=== PATIENT | female | born 1970 | race Hispanic/Latino ===

== ENCOUNTER → 2017-06-19 | Outpatient (CLI) | payer BC ==
--- NOTE | 2017-06-26 16:32 | Diagnostic Imaging Report ---
#[id number] - MGSCRBIL #BILATERAL DIGITAL SCREENING MAMMOGRAM WITH CAD: 06/19/2017 CLINICAL: Routine screening. Comparison is made to exams dated: 07/13/2015 mammogram and 07/04/2014 mammogram - [facility]. Current study contains 4 films. The tissue of both breasts is extremely dense, which lowers the sensitivity of mammography. Current study was also evaluated with a Computer Aided Detection (CAD) system. There are benign calcifications in both breasts. There also are benign lymph nodes in both breasts. No significant masses, calcifications, or other findings are seen in either breast. There has been no significant interval change. IMPRESSION: BENIGN There is no mammographic evidence of malignancy. A 1 year screening mammogram is recommended. The patient will be notified by letter of the results. Leon triplett/rody:06/26/2017 10:30:06 Drawing Frame Tender: Marium MURDOCK(Alcides)(M), [facility] letter sent: Compared to Prior B9 Mammogram BI-RADS: 2 Benign
== END ==
LOC: MAMMO 07:52
PROVIDERS: ATTEND Obstetrics & Gynecology
DX: Z12.31 Encounter for screening mammogram for malignant neoplasm of breast (principal)
CPT/HCPCS: 77067

== ENCOUNTER → 2018-01-11 | Day surgery (SDC) | payer BC ==
[2018-01-08 12:58] LABS: BASOPHILS % 0.2 % (0.0-1.0); EOSINOPHILS # (AUTO) 0.2 (0.0-0.4); EOSINOPHILS % 2.7 % (0.0-6.0); HEMATOCRIT 40.3 % (34.2-44.1); HEMOGLOBIN 13.7 g/dL (12.0-16.0); LYMPHOCYTES # (AUTO) 1.7 (1.0-3.2); LYMPHOCYTES % 28.3 % (18.0-39.1); MEAN CORPUSCULAR HEMOGLOBIN 30.3 pg (28-32); MEAN CORPUSCULAR VOLUME 89.2 fL (81-99); MONOCYTES # (AUTO) 0.4 (0.2-0.8); MONOCYTES % 7.4 % (4.4-11.3); NEUTROPHILS # (AUTO) 3.6 (2.1-6.9); NEUTROPHILS % 61.2 % (38.7-80.0); PLATELET COUNT 199 x10e3/uL (140-360); RED BLOOD COUNT 4.52 x10e6/uL (3.6-5.1); RED CELL DISTRIBUTION WIDTH 12.4 % (11.7-14.4)
[2018-01-08 13:14] LABS: ALANINE AMINOTRANSFERASE 13 IU/L (0-55); ALBUMIN 3.8 g/dL (3.5-5.0); ALBUMIN/GLOBULIN RATIO 1.2 (0.8-2.0); ALKALINE PHOSPHATASE 88 IU/L (40-150); ANION GAP 13.2 mmol/L (8-16); BLOOD UREA NITROGEN 14 mg/dL (7-26); BUN/CREATININE RATIO 16 (6-25); CALCIUM 9.6 mg/dL (8.4-10.2); CARBON DIOXIDE 25 mmol/L (22-29); CHLORIDE 106 mmol/L (98-107); CHOL/HDL RATIO 4.7 (3.0-3.6); CHOLESTEROL 229 MD/DL (0-199); CREATININE, SERUM 0.86 mg/dL (0.57-1.11); EST GLOMERULAR FILTRATION RATE > 60 ML/MIN (60-); GLUCOSE 99 mg/dL (74-118); HDL CHOLESTEROL 49 MG/DL (40-60); LDL CHOLESTEROL 160 MG/DL (60-130); POTASSIUM 4.2 mmol/L (3.5-5.1); SODIUM 140 mmol/L (136-145); TRIGLYCERIDES 102 MG/DL (0-149)
[~2018-01-11] VITALS: Ht 154.9 cm; Wt 66.7 kg
[2018-01-11] VITALS (7 sets, daily range): BP systolic 111–125; BP diastolic 75–91
[~2018-01-11] MED LIST: CARDIZEM120 MG PO; ESSENTIAL OILS PO; FENTANYL CITRATE/PF 100MCG/2 ML INJ ONE; FUROSEMIDE40 MG PO; HEPARIN SOD (PORCINE) 1000 UNIT/ML 30ML ONE; HEPARIN SOD/SOD CHLORIDE 2,000 ML ONE; IOPAMIDOL 370 MG/ML 200 ML INFUS..BTL INJ ONE; LIDOCAINE HCL 1% LOCAL INJ 20 ML VIAL ONE; MIDAZOLAM HCL 2 MG/2 ML VIAL ONE; NITROGLYCERIN/D5W 200 MCG/ML 250 ML ONE; OSPHENA PO; SULFURZYME PO; VERAPAMIL HCL 2.5 MG/ML 2 ML VIAL ONE; VITAMIN D31000 UNIT PO; [UNRECOGNIZED DRUG - OTHER] PO; [UNRECOGNIZED DRUG - OTHER] PO
--- OUTSIDE RECORDS SUMMARY | 2018-01-11 10:30 | XMS REPORT | Continuity of Care Document ---
Author Author [facility] Interface Address Unknown Phone Unavailable Problems Problem Status Onset Date Classification Date Reported Comments Source Galactorrhea not associated with childbirth<sup>1</sup> Active 06/29/2014 Problem 07/03/2017 Data migrated from [employer] system on 09/20/14. [facility] Gynecologic examination<sup>2</sup> Active 06/29/2014 Problem 07/03/2017 Data migrated from [employer] system on 09/20/14. [facility] Screening mammography<sup>6</sup> Active 06/29/2014 Problem 07/03/2017 Data migrated from [employer] system on 09/20/14. [facility] Menopausal syndrome<sup>3</sup> Active 04/21/2013 Problem 07/03/2017 Data migrated from [employer] system on 08/12/14. Medical [facility] Preoperative procedures<sup>4, 5</sup> Resolved 02/16/2013 Problem 07/03/2017 Data migrated from [employer] system on 09/29/14. [facility] 626.2 Active 01/27/2013 [facility] Chronic back pain Active Problem 07/03/[address] [facility] Constipation Active Problem 07/03/2017 [facility] Excessive and frequent menstruation Active Problem 07/03/[address] [facility] Heavy episode of vaginal bleeding Active Problem 07/03/2017 [facility] Hypertension Resolved Problem 07/03/2017 [facility] Simple obesity Active Problem 07/03/2017 [facility] Heart murmur Active Problem 06/29/[address] [facility] EXCESSIVE MENSTRUATION Active [facility] Medications Medication Details Route Status Patient Instructions Ordering Provider Order Date Source Ergocalciferol 25432 UNT Oral Capsule 50,000 IntlUnit=1 cap, PO, qWeek, # 12 cap, 0 Refill(s), Pharmacy: [place] [id number] Active 06/28/2017 [facility] Ospemifene 60 MG Oral Tablet [Osphena] 60 mg=1 tab, PO, Daily, # 30 tab, 6 Refill(s), Pharmacy: [place] [id number] Active 06/26/2017 [facility] ibuprofen 400 mg oral tablet 800 mg=2 tab, PO, Q6H, Pain, # 36 tab, 2 Refill(s) Active [place] 03/01/2013 [facility] acetaminophen-hydrocodone 325 mg-5 mg oral tablet 2 tab, PO, Q4H, Pain Score 4-6, # 30 tab, 0 Refill(s) Active [place] 03/01/2013 [facility] Reglan 10 mg, 2 mL, Route: IVP, Drug form: INJ, Q6H, Dosing Weight 60.455, kg, Start date: 02/28/13 18:00:00, Duration: 30 day, Stop date: 03/30/13 12:00:00(Same as: Reglan) No Longer Active [place] 03/01/2013 [facility] Phenergan 12.5 mg, Route: IVPB, ONCE, Dosing Weight 65.909, kg, Start date: 02/28/13 14:50:00, Stop date: 02/28/13 14:50:00 Inactive [place] 02/28/2013 [facility] ondansetron 4 mg, 2 mL, Route: IVP, Drug form: INJ, ONCE, Dosing Weight 65.909, kg, PRN Nausea & Vomiting, Start date: 02/28/13 14:20:00(Same as: Zofran) Inactive [place] 02/28/2013 [facility] Demerol HCl 50 mg, 1 mL, Route: IM, Drug form: INJ, ONCE, Dosing Weight 65.909, kg, PRN Pain Score 7-10, Start date: 02/28/13 14:20:00(Same as: Demerol) "Use Precaution in Elderly, Seizure disorders, and Renal impairment" Inactive [place] 02/28/2013 [facility] Phenergan 25 mg, 1 mL, Route: IM, Drug form: INJ, ONCE, Dosing Weight 65.909, kg, PRN as needed for nausea/vomiting, Start date: 02/28/13 14:20:00Do not give IV push. (Same as: Phenergan) Inactive [place] 02/28/2013 [facility] ketorolac 30 mg, 1 mL, Route: IVP, Drug form: INJ, ONCE, Dosing Weight 65.909, kg, Start date: 02/28/13 14:20:00, Duration: 1 doses or times, Stop date: 02/28/13 14:20:00(Same as:Toradol) IV bolus must be given >15 seconds. Give IM administration slowly and deeply into the muscle. Not for use > 4 days Inactive [place] 02/28/2013 [facility] hydromorphone 0.5 mg, 0.5 mL, Route: IVP, Drug form: INJ, Q5Min, Dosing Weight 65.909, kg, PRN Pain Score 7-10, Start date: 02/28/13 14:20:00, Duration: 4 doses or times, Stop date: Limited # of timesSame as: Dila udid Inactive [place] 02/28/2013 [facility] morphine Sulfate 2 mg, 1 mL, Route: IVP, Drug form: INJ, Q5Min, Dosing Weight 65.909, kg, PRN Pain Score 4-6, Start date: 02/28/13 14:20:00, Duration: 5 doses or times, Stop date: Limited # of times(Same as:MORPhine Sulfate) Inactive [place] 02/28/2013 [facility] flumazenil 0.2 mg, 2 mL, Route: IVP, Drug form: INJ, PRN, Dosing Weight 65.909, kg, PRN Benzodiazepine Reversal, Initial dose, Start date: 02/28/13 14:20:00, Duration: 12 hr, Stop date: 03/01/13 2:19:00(Same as: Romazicon) Inactive [place] 02/28/2013 [facility] labetalol 10 mg, 2 mL, Route: IVP, Drug form: INJ, Q5Min, Dosing Weight 65.909, kg, PRN Elevated BP, Start date: 02/28/13 14:20:00, Duration: 5 doses or times, Stop date: Limited # of times(Same as: Normodyne, Tr andate) Push over 2 minutes Give bolus over 2-3 minutes. Inactive [place] 02/28/2013 [facility] naloxone 0.04 mg, 0.1 mL, Route: IVP, Drug form: INJ, Q2MIN, Dosing Weight 65.909, kg, PRN Narcotic Reversal, Start date: 02/28/13 14:20:00, Duration: 8 doses or times, Stop date: Limited # of timesSame as Narcan Inactive [place] 02/28/2013 [facility] ephedrine 5 mg, 1 mL, Route: IVP, Drug form: INJ, Q5Min, Dosing Weight 65.909, kg, PRN Low Blood Pressure, Start date: 02/28/13 14:20:00, Duration: 12 hr, Stop date: 03/01/13 2:15:00 Inactive [place] 02/28/2013 [facility] Lactated Ringers Injection IV 1,000 mL 1,000 mL, Rate: 125 ml/hr, Infuse over: 8 hr, Route: IV, Dosing Weight 65.909 kg, Total Volume: 1,000, Start date: 02/28/13 14:20:00, Duration: 12 hr, Stop date: 03/01/13 2:19:00 Inactive [place] 02/28/2013 [facility] ibuprofen 800 mg, 2 tab, Route: PO, Drug form: TAB, TID, Dosing Weight 60.455, kg, PRN Pain, Start date: 02/28/13 14:04:00, Duration: 30 day, Stop date: 03/30/13 14:03:00(Same as: Motrin) "Do Not Crush" Give with food. No Longer Active [facility] 02/28/2013 [facility] morphine Sulfate 6 mg, 0.6 mL, Route: IVP, Drug form: SOLN, Q3H, Dosing Weight 65.909, kg, PRN Pain Score 7-10, Start date: 02/28/13 14:04:00, Duration: 30 day, Stop date: 03/30/13 14:03:00(Same as: MORPhine Sulfate) No Longer Active [place] 02/28/2013 [facility] ketorolac 30 mg, 1 mL, Route: IVP, Drug form: INJ, Q6H, Dosing Weight 60.455, kg, PRN Pain Score 6-10, Start date: 02/28/13 14:04:00, Duration: 1 day, Stop date: 03/01/13 14:03:00(Same as:Toradol) IV bolus must be given >15 seconds. Give IM administration slowly and deeply into the muscle. Not for use > 4 days No Longer Active [facility] 02/28/2013 [facility] meperidine 25 mg, 1 mL, Route: IM, Drug form: INJ, Q3H, Dosing Weight 60.455, kg, PRN Pain Score 7-10, DO NOT BREASTFEED, Start date: 02/28/13 14:04:00, Duration: 48 hr, Stop date: 03/02/13 14:03:00(Same as: Demerol) "Use Precaution in Elderly, Seizure disorders, and Renal impairment" No Longer Active [facility] 02/28/2013 [facility] zolpidem 5 mg, 1 tab, Route: PO, Drug form: TAB, Bedtime, Dosing Weight 65.909, kg, PRN Insomnia, Start date: 02/28/13 14:04:00, Duration: 30 day, Stop date: 03/30/13 14:03:00(Same As: Ambien) No Longer Active [facility] 02/28/2013 [facility] diphenhydrAMINE 25 mg, 1 tab, Route: PO, Drug form: TAB, Bedtime, Dosing Weight 65.909, kg, PRN Insomnia, Start date: 02/28/13 14:04:00, Duration: 30 day, Stop date: 03/30/13 14:03:00 No Longer Active [facility] 02/28/2013 [facility] ondansetron 4 mg, 2 mL, Route: IVP, Drug form: INJ, Q6H, Dosing Weight 65.909, kg, PRN Nausea & Vomiting, Start date: 02/28/13 14:04:00, Duration: 30 day, Stop date: 03/30/13 14:03:00(Same as: Zofran) No Longer Active [facility] 02/28/2013 [facility] acetaminophen-hydrocodone 325 mg-5 mg oral tablet 2 tab, Route: PO, Drug Form: TAB, Dosing Weight 60.455, kg, Q4H, PRN Pain Score 4-6, Start date: 02/28/13 14:04:00, Duration: 30 day, Stop date: 03/30/13 14:03:00(Same as: [place] 325/5) Do not exceed 4gm/day of acetaminophen. No Longer Active [facility] 02/28/2013 [facility] Lactated Ringers Injection IV 1,000 mL 1,000 mL, Rate: 125 ml/hr, Infuse over: 8 hr, Route: IV, Dosing Weight 65.909 kg, Total Volume: 1,000, Start date: 02/28/13 14:04:00, Duration: 30 day, Stop date: 03/30/13 14:03:00 No Longer Active [facility] 02/28/2013 [facility] Lovenox 40 mg, 0.4 mL, Route: SUB-Q, Drug form: INJ, ONCALL, Start date: 02/28/13 8:00:00, Duration: 12 hr, Stop date: 02/28/13 19:59:00(Same as: Lovenox) Inactive [facility] 02/28/2013 [facility] lidocaine 0.1 mL, Route: IV, Drug form: INJ, ONCALL, Start date: 02/28/13 6:00:00, Duration: 12 hr, Stop date: 02/28/13 17:59:00Preservative free. (Same as: Xylocaine MPF) Inactive [place] 02/28/2013 [facility] Lactated Ringers Injection IV 1,000 mL 1,000 mL, Rate: 100 ml/hr, Infuse over: 10 hr, Route: IV, Dosing Weight 65.909 kg, Total Volume: 1,000, Start date: 02/28/13 6:00:00, Duration: 12 hr, Stop date: 02/28/13 17:59:00 Inactive [place] 02/28/2013 [facility] Fat Fighter Fat Fighter, 2 tab, PO, Daily, Refill(s) 0 Active 02/17/2013 [facility] Vitamin D3 2000 intl units oral capsule 2,000 IntlUnit=1 cap, PO, Daily, 0 Refill(s) Active 02/17/2013 [facility] Probiotic Formula 1 cap, PO, Daily, 0 Refill(s) Active 02/17/2013 [facility] cefazolin + Sodium Chloride 0.9% IV 100 mL 1 gm, Route: IVPB, ONCALL, Dosing Weight 60.455, kg, Start date: 02/16/13 14:00:00, Duration: 30 day, Stop date: 03/18/13 13:59:00(Same As: Ancef Kefzol) No Longer Active [facility] 02/16/2013 [facility] enoxaparin 40 mg, 0.4 mL, Route: SUB-Q, Drug form: INJ, ONCE, Dosing Weight 60.455, kg, Start date: 02/16/13 13:05:00, Stop date: 02/16/13 13:05:00 No Longer Active [place] 02/16/2013 [facility] Allergies, Adverse Reactions, Alerts Substance Category Reaction Severity Reaction type Status Date Reported Comments Source Immunizations Immunization Date Given Site Status Last Updated Comments Source Results Order Name Results Value Reference Range Date Interpretation Comments Source HEMATOLOGY Hgb 11.4 g/dL 12.0 - 16.0 03/01/2013 LOW [facility] HEMATOLOGY Hct 33.5 % 36.0 - 48.0 03/01/2013 LOW [facility] HEMATOLOGY Hct 37.0 % 36.0 - 48.0 02/28/2013 Normal [facility] HEMATOLOGY Hgb 12.6 g/dL 12.0 - 16.0 02/28/2013 Normal [facility] BLOOD BANK RESULTS ABO/Rh A POS 02/28/2013 [facility] BLOOD BANK RESULTS Antibody Scrn Negative (02/28/2013 09:43:00) 02/28/2013 Normal [facility] CHEMISTRY U Preg Negative (02/28/2013 09:30:00) Negative 02/28/2013 Normal [facility] HEMATOLOGY Segs 59.3 % 45.0 - 75.0 [facility] Monocytes 10.6 % 2.0 - 12.0 02/17[facility] HEMATOLOGY Eosinophils 2.6 % 0.0 - 4.0 02/17/[facility] HEMATOLOGY Lymphocytes 27.0 % 20.0 - 40.0 02/17/[facility] HEMATOLOGY Basophils 0.5 % 0.0 - 1.0 02/17/[facility] HEMATOLOGY Lymphocytes # 1.7 K/CMM 1.0 - 5.5 02/17/2013 [facility] HEMATOLOGY Segs-Bands # 3.6 K/CMM 1.5 - 8.1 02/17/2013 [facility] HEMATOLOGY Monocytes # 0.6 K/CMM 0.0 - 0.8 02/17/2013 [facility] HEMATOLOGY Eosinophils # 0.2 K/CMM 0.0 - 0.5 02/17/[facility] HEMATOLOGY Basophils # 0.0 K/CMM 0.0 - 0.2 02/17/2013 Normal [facility] HEMATOLOGY Hgb 13.6 g/dL 12.0 - 16.0 02/17/2013 Normal [facility] HEMATOLOGY WBC X 10x3 6.1 K/CMM 3.7 - 10.4 02/17/2013 Normal [facility] HEMATOLOGY RBC X 10x6 4.41 M/CMM 4.20 - 5.40 02/17/2013 Normal [facility] HEMATOLOGY Hct 39.8 % 36.0 - 48.0 02/17/2013 Normal [facility] HEMATOLOGY MCV 90.4 fL 81.0 - 99.0 02/17/2013 Normal [facility] HEMATOLOGY MCH 30.9 pg 27.0 - 31.0 02/17/2013 Normal [facility] HEMATOLOGY MCHC 34.2 g/dL 32.0 - 36.0 02/17/2013 Normal [facility] HEMATOLOGY RDW 12.4 % 11.5 - 14.5 02/17/2013 Normal [facility] HEMATOLOGY Platelet 189 K/CMM 133 - 450 02/17/2013 Normal [facility] HEMATOLOGY MPV 9.9 fL 7.4 - 10.4 02/17/2013 Normal [facility] URINALYSIS UA Color Yellow *NA* (02/17/2013 09:00:00) Yellow 02/17/2013 [facility] URINALYSIS UA Turbidity Clear (02/17/2013 09:00:00) Clear 02/17/2013 Normal [facility] URINALYSIS UA Nitrite Negative (02/17/2013 09:00:00) Negative 02/17/2013 Normal [facility] URINALYSIS UA Blood Moderate *ABN* (02/17/2013 09:00:00) Negative 02/17/2013 ABN [facility] URINALYSIS UA Urobilinogen 0.2 EU/dL 0.1 - 1.0 02/17/2013 Normal [facility] URINALYSIS UA Bili Negative *NA* (02/17/2013 09:00:00) Negative 02/17/2013 [facility] URINALYSIS UA Ketones Negative *NA* (02/17/2013 09:00:00) Negative 02/17/2013 [facility] URINALYSIS UA Glucose Negative (02/17/2013 09:00:00) Negative 02/17/2013 Normal [facility] URINALYSIS UA pH 6.0 5.0 - 8.0 02/17/2013 Normal [facility] URINALYSIS UA Protein Negative (02/17/2013 09:00:00) Negative 02/17/2013 Normal [facility] URINALYSIS UA Spec Grav <=1.005
*NA*
(02/17/2013 09:00:00) <sup> </sup> <=1.030 02/17/2013 [facility] URINALYSIS UA Leuk Est Negative (02/17/2013 09:00:00) Negative 02/17/2013 Normal [facility] URINALYSIS UA Sq Epi Rare /LPF Few 02/17/2013 Normal [facility] URINALYSIS UA WBC None Seen (02/17/2013 09:00:00) None Seen 02/17/2013 Normal [facility] URINALYSIS Micro? Performed (02/17/2013 09:00:00) 02/17/2013 Normal [facility] URINALYSIS UA Bacteria Occasional /HPF None Seen 02/17/2013 Normal [facility] URINALYSIS UA RBC None Seen (02/17/2013 09:00:00) 0 - 2 02/17/2013 Normal [facility] Vital Signs Vital Sign Value Date Comments Source BMI Calculated 31.14 06/26/2017 [facility] Weight 74.744 06/26/2017 [facility] Height 154.94 cm 06/26/2017 [facility] Temperature Oral (F) 98.5 F 06/26/2017 [facility] Systolic (mm Hg) 139 06/26/2017 [facility] Diastolic (mm Hg) 97 06/26/2017 [facility] Heart Rate 74 06/26/2017 [facility] Heart Rate 96 03/01/2013 [facility] Temperature Oral (F) 99.0 F 03/01/2013 [facility] Respitory Rate 20 03/01/2013 [facility] Systolic (mm Hg) 116 03/01/2013 [facility] Diastolic (mm Hg) 76 03/01/2013 [facility] Temperature Oral (F) 98.3 F 03/01/2013 [facility] Respitory Rate 18 03/01/2013 [facility] Heart Rate 98 03/01/2013 [facility] Diastolic (mm Hg) 69 03/01/2013 [facility] Systolic (mm Hg) 106 03/01/2013 [facility] Systolic (mm Hg) 117 02/28/2013 [facility] Diastolic (mm Hg) 74 02/28/2013 [facility] Heart Rate 84 02/28/2013 [facility] Respitory Rate 16 02/28/2013 [facility] Weight 65.909 02/17/2013 [facility] Height 154.94 cm 02/17/2013 [facility] Encounters Location Location Details Encounter Type Encounter Number Reason For Visit Attending Provider ADM Date DC Date Status Source Not Sent Inpatient [id number] 626.2 FRANCISCO BOWEN 02/28/2013 03/01/2013 Active [facility] Outpatient [id number] FRANCISCO BOWEN 07/06/2015 Active [facility] Outpatient [id number] FRANCISCO BOWEN 01/19/2017 Active [facility] Outpatient [id number] FRANCISCO BOWEN 06/26/2017 [facility] 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
--- OUTSIDE RECORDS SUMMARY | 2018-01-11 10:31 | XMS REPORT ---
Author [facility] Address Unknown Phone Unavailable Care Team Providers Care Assistant Food Service Manager Name Role Phone FRANCISCO ZAMORA Unavailable Unavailable Problems This patient has no known problems. Allergies, Adverse Reactions, Alerts This patient has no known allergies or adverse reactions. Medications This patient has no known medications. Results Test Description Test Time Test Comments Text Results Atomic Results Result Comments MAMMOGRAPHY DIGITAL SCR BILAT [place] [address] Patient Name: DIOR JONES MR #: [id number] : 1970 Age/Sex: 46/F Req #: [id number] [facility] Physician: Ordered by: FRANCISCO ZAMORA MD Report #: [id number] Location: MAMMO Room/Bed: Procedure: [id number] MG/MAMMOGRAPHY DIGITAL SCR BILAT Exam Date: 06/19/17 Exam Time: 0833 REPORT STATUS: Signed #[id number] - MGSCRBIL #BILATERAL DIGITAL SCREENING MAMMOGRAM WITH CAD: 06/19/2017 CLINICAL: Routine screening. Comparison is made to exams dated: 07/13/2015 mammogram and 07/04/2014 mammogram - [facility]. Current study contains 4 films. The tissue of both breasts is extremely dense, which lowers the sensitivity of mammography. Current study was also evaluated with a Computer Aided Detection (CAD) system. There are benign calcifications in both breasts. There also are benign lymph nodes in both breasts. No significant masses, calcifications, or other findings are seen in either breast. There has been no significant interval change. IMPRESSION: BENIGN There is no mammographic evidence of malignancy. A 1 year screening mammogram is recommended. The patient will be notified by letter of the results. Venu triplett/luis enrique:06/26/2017 10:30:06 Urban Anthropologist: Marium MURDOCK(Alcides)(M), [facility] letter sent: Compared to Prior B9 Mammogram BI-RADS: 2 Benign Dictated By: VENU MINER DO 1030 Transcribed By: LUIS ENRIQUE on 06/26/17 1030 COPY TO: FRANCISCO ZAMORA MD
--- OUTSIDE RECORDS SUMMARY | 2018-01-11 10:31 | XMS REPORT | Summary of Care ---
Author Author [facility] mortuary beautician [place] Organization [facility] mortuary beautician [place] Address Unknown Phone Unavailable Encounter DANIEL Lu(FIN) [id number] Date(s): 06/26/17 - 06/26/17 [facility] mortuary beautician [place] [address] [place], [place] [address] [phone] Discharge Disposition: Home or Self Care Attending Physician: Negrito Bowen MD Vital Signs Most recent to 1 oldest [Reference Range]: Height 154.94 cm (06/26/17 9:10 AM) Temperature Oral 98.5 DegF [96.4-99.1 DegF] (06/26/17 9:10 AM) Blood Pressure 139/97 mmHg [90-140/60-90 mmHg] (06/26/17 9:10 AM) Peripheral Pulse 74 bpm Rate [60-100 bpm] (06/26/17 9:10 AM) Weight 74.744 kg (06/26/17 9:10 AM) Body Mass Index 31.14 m2 (06/26/17 9:10 AM) Problem List Condition Effective Dates Status Health Status Informant Chronic back Active pain(Confirmed) Constipation(Confirm Active ed) Excessive and Active frequent menstruation(Confirm ed) Galactorrhea not 06/29/14 Active associated with childbirth1 Gynecologic 06/29/14 Active examination2 Heart Active murmur(Confirmed) Heavy episode of Active vaginal bleeding(Confirmed) Hypertension(Confirm Resolved ed) Menopausal syndrome3 04/21/13 Active Preoperative 02/16/13 Resolved procedures4, 5 Screening 06/29/14 Active mammography6 Simple Active obesity(Confirmed) 1Data migrated from [employer] on 09/20/14. 2Data migrated from [employer] on 09/20/14. 3Data migrated from [employer] on 08/12/14. 4Data migrated from [employer] on 09/30/14. 5Data migrated from [employer] on 09/29/14. 6Data migrated from [employer] on 09/20/14. Allergies, Adverse Reactions, Alerts Substance Reaction Severity Status NKDA Active Medications ergocalciferol 50,000 intl units oral capsule 50,000 IntlUnit=1 cap, PO, qWeek, # 12 cap, 0 Refill(s), Pharmacy: [facility] [place] [id number] Start Date: 06/27/17 Stop Date: 09/19/17 Status: Ordered Osphena 60 mg oral tablet 60 mg=1 tab, PO, Daily, # 30 tab, 6 Refill(s), Pharmacy: [facility] [place] [id number] Start Date: 06/26/17 Status: Ordered Results No data available for this section Immunizations No data available for this section Procedures Procedure Date Related Diagnosis Body Site Status H/O: hysterectomy 02/2013 Completed Ablation1 Completed Bunionectomy Completed section Completed 1vaginal with novasure Social History Social History Type Response Sexual Sexually active: Yes. Last Pap Smear 06/2015 Normal. Alcohol Current, Type Liquor. Frequency: 1-2 times per month. Smoking Status Never smoker; Exposure to Tobacco Smoke None; Cigarette Smoking Last 365 Days No; Reg Smoking Cessation Counseling No entered on: 06/26/17 Assessment and Plan No data available for this section
--- OUTSIDE RECORDS SUMMARY | 2018-01-11 10:31 | XMS REPORT | Summary of Care ---
Author Author [facility] adult literacy instructor [place] Organization [facility] adult literacy instructor [place] Address Unknown Phone Unavailable Encounter DANIEL Lu(FIN) [id number] Date(s): 06/29/17 - 06/30/17 [facility] adult literacy instructor [place] [address] [place] [place], [place] [address] [phone] Vital Signs No data available for this section Problem List Condition Effective Dates Status Health Status Informant Chronic back Active pain(Confirmed) Constipation(Confirm Active ed) Excessive and Active frequent menstruation(Confirm ed) Galactorrhea not 06/29/14 Active associated with childbirth1 Gynecologic 06/29/14 Active examination2 Heavy episode of Active vaginal bleeding(Confirmed) Hypertension(Confirm [...] Substance Reaction Severity Status NKDA Active Medications No data available for this section Results No data available for this section [...]
--- OUTSIDE RECORDS SUMMARY | 2018-01-11 10:31 | XMS REPORT | CCD ---
Author Author Auto Generated Organization [facility] Address Unknown Phone Unavailable Care Team Providers Care Sap Pi Developer Name Role Phone Negrito Bowen RP Allergies, Adverse Reactions, Alerts Substance Reaction Status NKDA Active Problem List Condition Effective Dates Status Chronic back pain Active Constipation Active Excessive and frequent menstruation Active Heart murmur Active Heavy episode of vaginal bleeding Active Medications Medication Instructions Start Date End Date Status lidocaine 0.1 mL, Route: IV, Drug form: INJ, 02/28/2013 02/28/2013 Completed ONCALL, Start date: 02/28/13 6:00:00, Duration: 12 hr, Stop date: 02/28/13 17:59:00Preservative free. (Same as: Xylocaine MPF) Lactated Ringers 1,000 mL, Rate: 100 ml/hr, Infuse 02/28/2013 02/28/2013 Completed Injection IV 1,000 over: 10 hr, Route: IV, Dosing mL Weight 65.909 kg, Total Volume: 1,000, Start date: 02/28/13 6:00:00, Duration: 12 hr, Stop date: 02/28/13 17:59:00 ondansetron 4 mg, 2 mL, Route: IVP, Drug form: 02/28/2013 02/28/2013 Completed INJ, ONCE, Dosing Weight 65.909, kg, PRN Nausea & Vomiting, Start date: 02/28/13 14:20:00(Same as: Zofran) Demerol HCl 50 mg, 1 mL, Route: IM, Drug form: 02/28/2013 02/28/2013 Discontinued INJ, ONCE, Dosing Weight 65.909, kg, PRN Pain Score 7-10, Start date: 02/28/13 14:20:00(Same as: Demerol) "Use Precaution in Elderly, Seizure disorders, and Renal impairment" Demerol HCl 25 mg, 1 mL, Route: IVP, Drug form: 02/28/2013 02/28/2013 Discontinued INJ, Q10Min, Dosing Weight 65.909, kg, PRN Pain Score 4-6, Start date: 02/28/13 14:20:00, Duration: 4 hr, Stop date: 02/28/13 18:10:00(Same as: Demerol) "Use Precaution in Elderly, Seizure disorders, and Renal impairment" Phenergan 25 mg, 1 mL, Route: IM, Drug form: 02/28/2013 02/28/2013 Discontinued INJ, ONCE, Dosing Weight 65.909, kg, PRN as needed for nausea/vomiting, Start date: 02/28/13 14:20:00Do not give IV push. (Same as: Phenergan) ketorolac 30 mg, 1 mL, Route: IVP, Drug form: 02/28/2013 02/28/2013 Discontinued INJ, ONCE, Dosing Weight 65.909, kg, Start date: 02/28/13 14:20:00, Duration: 1 doses or times, Stop date: 02/28/13 14:20:00(Same as:Toradol) IV bolus must be given >15 seconds. Give IM administration slowly and deeply into the muscle. Not for use > 4 days hydromorphone 0.5 mg, 0.5 mL, Route: IVP, Drug 02/28/2013 02/28/2013 Discontinued form: INJ, Q5Min, Dosing Weight 65.909, kg, PRN Pain Score 7-10, Start date: 02/28/13 14:20:00, Duration: 4 doses or times, Stop date: Limited # of timesSame as: Dilaudid morphine Sulfate 2 mg, 1 mL, Route: IVP, Drug form: 02/28/2013 02/28/2013 Discontinued INJ, Q5Min, Dosing Weight 65.909, kg, PRN Pain Score 4-6, Start date: 02/28/13 14:20:00, Duration: 5 doses or times, Stop date: Limited # of times(Same as:MORPhine Sulfate) flumazenil 0.2 mg, 2 mL, Route: IVP, Drug 02/28/2013 02/28/2013 Discontinued form: INJ, PRN, Dosing Weight 65.909, kg, PRN Benzodiazepine Reversal, Initial dose, Start date: 02/28/13 14:20:00, Duration: 12 hr, Stop date: 03/01/13 2:19:00(Same as: Romazicon) labetalol 10 mg, 2 mL, Route: IVP, Drug form: 02/28/2013 02/28/2013 Discontinued INJ, Q5Min, Dosing Weight 65.909, kg, PRN Elevated BP, Start date: 02/28/13 14:20:00, Duration: 5 doses or times, Stop date: Limited # of times(Same as: Normodyne, Trandate)Push over 2 minutes Give bolus over 2-3 minutes. naloxone 0.04 mg, 0.1 mL, Route: IVP, Drug 02/28/2013 02/28/2013 Discontinued form: INJ, Q2MIN, Dosing Weight 65.909, kg, PRN Narcotic Reversal, Start date: 02/28/13 14:20:00, Duration: 8 doses or times, Stop date: Limited # of timesSame as Narcan ephedrine 5 mg, 1 mL, Route: IVP, Drug form: 02/28/2013 02/28/2013 Discontinued INJ, Q5Min, Dosing Weight 65.909, kg, PRN Low Blood Pressure, Start date: 02/28/13 14:20:00, Duration: 12 hr, Stop date: 03/01/13 2:15:00 Lactated Ringers 1,000 mL, Rate: 125 ml/hr, Infuse 02/28/2013 02/28/2013 Discontinued Injection IV 1,000 over: 8 hr, Route: IV, Dosing mL Weight 65.909 kg, Total Volume: 1,000, Start date: 02/28/13 14:20:00, Duration: 12 hr, Stop date: 03/01/13 2:19:00 ibuprofen 400 mg 800 mg=2 tab, PO, Q6H, Pain, # 36 03/01/2013 Ordered oral tablet tab, 2 Refill(s) acetaminophen-hydroc 2 tab, PO, Q4H, Pain Score 4-6, # 03/01/2013 Ordered odone 325 mg-5 mg 30 tab, 0 Refill(s) oral tablet Reglan 10 mg, 2 mL, Route: IVP, Drug form: 02/28/2013 03/01/2013 Discontinued INJ, Q6H, Dosing Weight 60.455, kg, Start date: 02/28/13 18:00:00, Duration: 30 day, Stop date: 03/30/13 12:00:00(Same as: Reglan) ibuprofen 800 mg, 2 tab, Route: PO, Drug 02/28/2013 03/01/2013 Discontinued form: TAB, TID, Dosing Weight 60.455, kg, PRN Pain, Start date: 02/28/13 14:04:00, Duration: 30 day, Stop date: 03/30/13 14:03:00(Same as: Motrin)"Do Not Crush" Give with food. morphine Sulfate 6 mg, 0.6 mL, Route: IVP, Drug 02/28/2013 03/01/2013 Discontinued form: SOLN, Q3H, Dosing Weight 65.909, kg, PRN Pain Score 7-10, Start date: 02/28/13 14:04:00, Duration: 30 day, Stop date: 03/30/13 14:03:00(Same as: MORPhine Sulfate) ketorolac 30 mg, 1 mL, Route: IVP, Drug form: 02/28/2013 03/01/2013 Discontinued INJ, Q6H, Dosing Weight 60.455, kg, PRN Pain Score 6-10, Start date: 02/28/13 14:04:00, Duration: 1 day, Stop date: 03/01/13 14:03:00(Same as:Toradol) IV bolus must be given >15 seconds. Give IM administration slowly and deeply into the muscle. Not for use > 4 days meperidine 25 mg, 1 mL, Route: IM, Drug form: 02/28/2013 03/01/2013 Discontinued INJ, Q3H, Dosing Weight 60.455, kg, PRN Pain Score 7-10, DO NOT BREASTFEED, Start date: 02/28/13 14:04:00, Duration: 48 hr, Stop date: 03/02/13 14:03:00(Same as: Demerol) "Use Precaution in Elderly, Seizure disorders, and Renal impairment" zolpidem 5 mg, 1 tab, Route: PO, Drug form: 02/28/2013 03/01/2013 Discontinued TAB, Bedtime, Dosing Weight 65.909, kg, PRN Insomnia, Start date: 02/28/13 14:04:00, Duration: 30 day, Stop date: 03/30/13 14:03:00(Same As: Ambien) diphenhydrAMINE 25 mg, 1 tab, Route: PO, Drug form: 02/28/2013 03/01/2013 Discontinued TAB, Bedtime, Dosing Weight 65.909, kg, PRN Insomnia, Start date: 02/28/13 14:04:00, Duration: 30 day, Stop date: 03/30/13 14:03:00 ondansetron 4 mg, 2 mL, Route: IVP, Drug form: 02/28/2013 03/01/2013 Discontinued INJ, Q6H, Dosing Weight 65.909, kg, PRN Nausea & Vomiting, Start date: 02/28/13 14:04:00, Duration: 30 day, Stop date: 03/30/13 14:03:00(Same as: Zofran) morphine Sulfate 4 mg, 1 mL, Route: IVP, Drug form: 02/28/2013 03/01/2013 Discontinued INJ, Q3H, Dosing Weight 65.909, kg, PRN Pain Score 4-6, Start date: 02/28/13 14:04:00, Duration: 30 day, Stop date: 03/30/13 14:03:00(Same as:MORPhine Sulfate) morphine Sulfate 2 mg, 1 mL, Route: IVP, Drug form: 02/28/2013 03/01/2013 Discontinued INJ, Q3H, Dosing Weight 65.909, kg, PRN Pain Score 1-3, Start date: 02/28/13 14:04:00, Duration: 30 day, Stop date: 03/30/13 14:03:00(Same as:MORPhine Sulfate) acetaminophen-hydroc 2 tab, Route: PO, Drug Form: TAB, 02/28/2013 03/01/2013 Discontinued odone 325 mg-5 mg Dosing Weight 60.455, kg, Q4H, PRN oral tablet Pain Score 4-6, Start date: 02/28/13 14:04:00, Duration: 30 day, Stop date: 03/30/13 14:03:00(Same as: [place] 325/5) Do not exceed 4gm/day of acetaminophen. Lactated Ringers 1,000 mL, Rate: 125 ml/hr, Infuse 02/28/2013 03/01/2013 Discontinued Injection IV 1,000 over: 8 hr, Route: IV, Dosing mL Weight 65.909 kg, Total Volume: 1,000, Start date: 02/28/13 14:04:00, Duration: 30 day, Stop date: 03/30/13 14:03:00 cefazolin + Sodium 1 gm, Route: IVPB, ONCALL, Dosing 02/16/2013 02/28/2013 Completed Chloride 0.9% IV 100 Weight 60.455, kg, Start date: mL 02/16/13 14:00:00, Duration: 30 day, Stop date: 03/18/13 13:59:00(Same As: Allison Webster) enoxaparin 40 mg, 0.4 mL, Route: SUB-Q, Drug 02/16/2013 02/28/2013 Deleted form: INJ, ONCE, Dosing Weight 60.455, kg, Start date: 02/16/13 13:05:00, Stop date: 02/16/13 13:05:00 Phenergan 12.5 mg, Route: IVPB, ONCE, Dosing 02/28/2013 02/28/2013 Completed Weight 65.909, kg, Start date: 02/28/13 14:50:00, Stop date: 02/28/13 14:50:00 Fat Fighter Fat Fighter, 2 tab, PO, Daily, 02/17/2013 Ordered Refill(s) 0 Lovenox 40 mg, 0.4 mL, Route: SUB-Q, Drug 02/28/2013 02/28/2013 Completed form: INJ, ONCALL, Start date: 02/28/13 8:00:00, Duration: 12 hr, Stop date: 02/28/13 19:59:00(Same as: Lovenox) Vitamin D3 2000 intl 2,000 IntlUnit=1 cap, PO, Daily, 0 02/17/2013 Ordered units oral capsule Refill(s) Probiotic Formula 1 cap, PO, Daily, 0 Refill(s) 02/17/2013 Ordered Vital Signs Most recent to oldest [Reference Range]: 1 2 3 Height 154.94 cm (02/17/2013 09:16:00) Temperature Oral [96.4-99.1 DegF] 99.0 DegF (03/01/2013 07:38:00) 98.3 DegF (02/28/2013 19:40:00) Systolic Blood Pressure [90-140 mmHg] 116 mmHg (03/01/2013 07:38:00) 106 mmHg (02/28/2013 19:40:00) 117 mmHg (02/28/2013 16:00:00) Diastolic Blood Pressure [60-90 mmHg] 76 mmHg (03/01/2013 07:38:00) 69 mmHg (02/28/2013 19:40:00) 74 mmHg (02/28/2013 16:00:00) Respiratory Rate [14-20 BRMIN] 20 BRMIN (03/01/2013 07:38:00) 18 BRMIN (02/28/2013 19:40:00) 16 BRMIN (02/28/2013 16:00:00) Peripheral Pulse Rate [60-100 bpm] 96 bpm (03/01/2013 07:38:00) 98 bpm (02/28/2013 19:40:00) 84 bpm (02/28/2013 16:00:00) Weight 65.909 kg (02/17/2013 09:16:00) Results URINALYSIS Most recent to oldest [Reference Range]: 1 2 3 UA Turbidity [Clear] Clear (02/17/2013 09:00:00) UA Color [Yellow] Yellow *NA* (02/17/2013 09:00:00) UA pH [5.0-8.0] 6.0 (02/17/2013 09:00:00) UA Spec Grav [<=1.030] <=1.005 *NA* (02/17/2013 09:00:00) UA Glucose [Negative] Negative (02/17/2013 09:00:00) UA Blood [Negative] Moderate *ABN* (02/17/2013 09:00:00) UA Ketones [Negative] Negative *NA* (02/17/2013 09:00:00) UA Protein [Negative] Negative (02/17/2013 09:00:00) UA Urobilinogen [0.1-1.0 EU/dL] 0.2 EU/dL (02/17/2013 09:00:00) UA Bili [Negative] Negative *NA* (02/17/2013 09:00:00) UA Leuk Est [Negative] Negative (02/17/2013 09:00:00) UA Nitrite [Negative] Negative (02/17/2013 09:00:00) UA WBC [None Seen] None Seen (02/17/2013 09:00:00) UA RBC [0-2] None Seen (02/17/2013 09:00:00) UA Bacteria [None Seen /HPF] Occasional /HPF (02/17/2013 09:00:00) UA Sq Epi [Few /LPF] Rare /LPF (02/17/2013 09:00:00) Micro? Performed (02/17/2013 09:00:00) BLOOD BANK RESULTS Most recent to oldest [Reference Range]: 1 2 3 ABO/Rh A POS *Unknown* (02/28/2013 09:43:00) Antibody Scrn Negative (02/28/2013 09:43:00) CHEMISTRY Most recent to oldest [Reference Range]: 1 2 3 U Preg [Negative] Negative (02/28/2013 09:30:00) HEMATOLOGY Most recent to oldest [Reference Range]: 1 2 3 WBC [3.7-10.4 K/CMM] 6.1 K/CMM (02/17/2013 09:00:00) RBC [4.20-5.40 M/CMM] 4.41 M/CMM (02/17/2013 09:00:00) Hgb [12.0-16.0 g/dL] 11.4 g/dL *LOW* (03/01/2013 03:00:00) 12.6 g/dL (02/28/2013 14:43:00) 13.6 g/dL (02/17/2013 09:00:00) Hct [36.0-48.0 %] 33.5 % *LOW* (03/01/2013 03:00:00) 37.0 % (02/28/2013 14:43:00) 39.8 % (02/17/2013 09:00:00) MCV [81.0-99.0 fL] 90.4 fL (02/17/2013 09:00:00) MCH [27.0-31.0 pg] 30.9 pg (02/17/2013 09:00:00) MCHC [32.0-36.0 g/dL] 34.2 g/dL (02/17/2013:00:00) RDW [11.5-14.5 %] 12.4 % (02/17/2013:00:00) Platelet [133-450 K/CMM] 189 K/CMM (02/17/2013:00:00) MPV [7.4-10.4 fL] 9.9 fL (02/17/2013:00:00) Segs [45.0-75.0 %] 59.3 % (02/17/2013:00:00) Lymphocytes [20.0-40.0 %] 27.0 % (02/17/2013:00:00) Monocytes [2.0-12.0 %] 10.6 % (02/17/2013:00:00) Eosinophils [0.0-4.0 %] 2.6 % (02/17/2013:00:00) Basophils [0.0-1.0 %] 0.5 % (02/17/2013:00:00) Segs-Bands # [1.5-8.1 K/CMM] 3.6 K/CMM (02/17/2013:00:00) Lymphocytes # [1.0-5.5 K/CMM] 1.7 K/CMM (02/17/2013:00:00) Monocytes # [0.0-0.8 K/CMM] 0.6 K/CMM (02/17/2013:00:00) Eosinophils # [0.0-0.5 K/CMM] 0.2 K/CMM (02/17/2013:00:00) Basophils # [0.0-0.2 K/CMM] 0.0 K/CMM (02/17/2013:00:00) Procedures Procedures Date Related Diagnosis Ablation1 Bunionectomy section 1vaginal with novasure
--- NOTE | 2018-01-11 13:36 | Operative Report ---
DATE OF PROCEDURE: January 11, 2018 INDICATIONS: Coronary artery disease, abnormal stress test. PROCEDURES PERFORMED 1. Left heart catheterization, selective coronary angiography, left ventriculography. 2. Deployment of right wrist transradial band. COMPLICATIONS: None. RECOMMENDATIONS: Medical therapy. Access was obtained in the right radial artery using ultrasound guidance. A 5-Upper Sor[place] sheath was placed. Diagnostic coronary angiogram revealed no angiographic coronary artery disease. Right coronary artery was a dominant vessel. Excellent flow. No critical stenosis or occlusions. LV ejection fraction 60%. LV end-diastolic pressure of 10. No gradient across the aortic valve on pullback. Sheath and guide were removed. TR band applied. Patient was discharged home the same day. Job#: [id number]
== END | disposition home or self-care (01) ==
LOC: CATH LAB 10:27
PROVIDERS: ATTEND Internal Medicine Interventional Cardiology
DX: I25.10 Atherosclerotic heart disease of native coronary artery without angina pectoris (principal); Z28.21 Immunization not carried out because of patient refusal
CPT/HCPCS: 36415; 80053; 80061; 85025; 93458; C1887; J1644; J2001; J2250; Q9967

== ENCOUNTER → 2018-02-03 | Day surgery (SDC) | payer BC ==
[2018-02-02 11:57] LABS: BASOPHILS % 0.2 % (0.0-1.0); EOSINOPHILS # (AUTO) 0.1 (0.0-0.4); EOSINOPHILS % 1.3 % (0.0-6.0); HEMATOCRIT 42.9 % (34.2-44.1); HEMOGLOBIN 14.7 g/dL (12.0-16.0); LYMPHOCYTES # (AUTO) 1.9 (1.0-3.2); LYMPHOCYTES % 31.6 % (18.0-39.1); MEAN CORPUSCULAR HEMOGLOBIN 30.6 pg (28-32); MEAN CORPUSCULAR HGB CONC 34.3 g/dL (31-35); MEAN CORPUSCULAR VOLUME 89.4 fL (81-99); MONOCYTES # (AUTO) 0.6 (0.2-0.8); MONOCYTES % 9.7 % (4.4-11.3); NEUTROPHILS # (AUTO) 3.4 (2.1-6.9); NEUTROPHILS % 56.7 % (38.7-80.0); PLATELET COUNT 216 x10e3/uL (140-360); RED CELL DISTRIBUTION WIDTH 12.6 % (11.7-14.4)
[2018-02-02 12:31] LABS: ALANINE AMINOTRANSFERASE 29 IU/L (0-55); ALBUMIN/GLOBULIN RATIO 1.1 (0.8-2.0); ALKALINE PHOSPHATASE 100 IU/L (40-150); ANION GAP 13.7 mmol/L (8-16); BLOOD UREA NITROGEN 14 mg/dL (7-26); BUN/CREATININE RATIO 16 (6-25); CALCIUM 9.4 mg/dL (8.4-10.2); CARBON DIOXIDE 27 mmol/L (22-29); CHLORIDE 100 mmol/L (98-107); CREATININE, SERUM 0.88 mg/dL (0.57-1.11); EST GLOMERULAR FILTRATION RATE > 60 ML/MIN (60-); GLUCOSE 92 mg/dL (74-118); POTASSIUM 3.7 mmol/L (3.5-5.1); SODIUM 137 mmol/L (136-145)
[~2018-02-03] VITALS: Ht 154.9 cm; Wt 66.7 kg
[~2018-02-03] MED LIST changes: +BENZOCAINE 20% SPR 60 ML CAN ONE; -HEPARIN SOD (PORCINE) 1000 UNIT/ML 30ML ONE; +HEPARIN SOD/SOD CHLORIDE 1,000 ML ONE; -HEPARIN SOD/SOD CHLORIDE 2,000 ML ONE; -IOPAMIDOL 370 MG/ML 200 ML INFUS..BTL INJ ONE; -LIDOCAINE HCL 1% LOCAL INJ 20 ML VIAL ONE; +LIDOCAINE HCL 2% LOCAL 20 ML VIAL ONE; -NITROGLYCERIN/D5W 200 MCG/ML 250 ML ONE; +PROPOFOL IV EMULSION 10 MG/ML 20 ML VIAL ONE; +SODIUM CHLORIDE 0.9% 1000ML 1,000 ML ONE; -VERAPAMIL HCL 2.5 MG/ML 2 ML VIAL ONE
[2018-02-03 10:57] VITALS: BP 119/84
[2018-02-03 14:00] VITALS: BP_SYST 144; BP_DIAS 72; BP_DIAS 85
[2018-02-03 14:42] VITALS: BP 144/75
--- NOTE | 2018-02-03 15:52 | Operative Report ---
DATE OF PROCEDURE: February 03, 2018 INDICATIONS: Pulmonary hypertension. PROCEDURES PERFORMED: Right heart catheterization. COMPLICATIONS: None. RECOMMENDATIONS: Medical therapy. Right antecubital vein IV was exchanged to a 7-Sinhala sheath balloon flotation [place]-Martina catheter was used without complications. Pulmonary artery pressure mean 19 mmHg. Pulmonary capillary wedge pressure 9 mmHg. Right ventricular pressure 27/6 mmHg. Right atrial pressure 8 mmHg. Cardiac output and cardiac index are normal. The sheath was removed. Patient discharged home same day. Job#: [id number]
== END | disposition home or self-care (01) ==
LOC: CATH LAB 10:35 → EDSTATUS 12:30
PROVIDERS: ATTEND Internal Medicine Interventional Cardiology
DX: I50.9 Heart failure, unspecified (principal); I27.20 Pulmonary hypertension, unspecified; Z01.812 Encounter for preprocedural laboratory examination
CPT/HCPCS: 36415; 80053; 85025; 93312; 93320; 93325; 93451; C1766; C1769; J2001; J2250; J2704; J7030

== ENCOUNTER → 2018-12-17 | Outpatient (CLI) | payer OTHER ==
[~2018-12-17] MED LIST changes: -BENZOCAINE 20% SPR 60 ML CAN ONE; -FENTANYL CITRATE/PF 100MCG/2 ML INJ ONE; -HEPARIN SOD/SOD CHLORIDE 1,000 ML ONE; -LIDOCAINE HCL 2% LOCAL 20 ML VIAL ONE; -MIDAZOLAM HCL 2 MG/2 ML VIAL ONE; -PROPOFOL IV EMULSION 10 MG/ML 20 ML VIAL ONE; -SODIUM CHLORIDE 0.9% 1000ML 1,000 ML ONE
== END ==
LOC: MAMMO 08:30
PROVIDERS: ATTEND Obstetrics & Gynecology
DX: Z12.31 Encounter for screening mammogram for malignant neoplasm of breast (principal)
CPT/HCPCS: 77067

== ENCOUNTER → 2020-03-15 | Outpatient (CLI) | payer OTHER ==
[~2020-03-15] MED LIST changes: +COVID-19 VACC, MRNA(MODERNA)/PF 100 MCG/0.5 ML VIAL IM ONE
== END ==
LOC: VACCPMC 16:30
DX: Z23 Encounter for immunization (principal); Z20.828 Contact with and (suspected) exposure to other viral communicable diseases

== ENCOUNTER → 2020-04-20 | Outpatient (CLI) | payer OTHER | END | DRG 951 | LOC: VACCPMC 07:37 | DX: Z23 Encounter for immunization (principal); Z20.822 Contact with and (suspected) exposure to COVID-19 | CPT/HCPCS: 0012A; 91301 ==

== ENCOUNTER 2021-05-23 19:15 | Emergency (ER) | payer OTHER ==
[~2021-05-23] VITALS: Ht 154.9 cm; Wt 66.7 kg
[~2021-05-23 19:15] MED LIST changes: -COVID-19 VACC, MRNA(MODERNA)/PF 100 MCG/0.5 ML VIAL IM ONE
[2021-05-23] MEDS ORDERED: OMEPRAZOLE40 MG PO (19:41)
== END 2021-05-23 19:50 | disposition home or self-care (01) ==
LOC: ER 19:30
DX: R10.13 Epigastric pain (principal); K29.70 Gastritis, unspecified, without bleeding; I10 Essential (primary) hypertension; F17.210 Nicotine dependence, cigarettes, uncomplicated
CPT/HCPCS: 93005; 99282

== ENCOUNTER → 2021-06-24 | Day surgery (SDC) | payer OTHER ==
[2021-06-21 15:13] LABS: BASOPHILS % 0.3 % (0.0-1.0); EOSINOPHILS # (AUTO) 0.1 (0.0-0.4); EOSINOPHILS % 1.2 % (0.0-6.0); HEMATOCRIT 43.6 % (34.2-44.1); HEMOGLOBIN 14.6 g/dL (12.0-16.0); LYMPHOCYTES # (AUTO) 1.9 (1.0-3.2); LYMPHOCYTES % 31.1 % (18.0-39.1); MEAN CORPUSCULAR HEMOGLOBIN 31.2 pg (28-32); MEAN CORPUSCULAR HGB CONC 33.5 g/dL (31-35); MEAN CORPUSCULAR VOLUME 93.2 fL (81-99); MONOCYTES # (AUTO) 0.6 (0.2-0.8); NEUTROPHILS # (AUTO) 3.4 (2.1-6.9); NEUTROPHILS % 56.9 % (38.7-80.0); PLATELET COUNT 196 x10e3/uL (140-360); RED BLOOD COUNT 4.68 x10e6/uL (3.6-5.1); RED CELL DISTRIBUTION WIDTH 12.3 % (11.7-14.4)
[~2021-06-24] MED LIST changes: +CALCIUM500 MG PO; +FENTANYL CITRATE/PF 100MCG/2 ML INJ ONE; +LIDOCAINE HCL 2% LOCAL INJ 5 ML SDV VIAL INJ ONE; +MIDAZOLAM HCL 2 MG/2 ML VIAL ONE; +OMEPRAZOLE40 MG PO; +PROPOFOL IV EMULSION 10 MG/ML 20 ML VIAL ONE
[2021-06-24 10:52] VITALS: BP 123/82
== END | disposition home or self-care (01) ==
LOC: OR 07:01
PROVIDERS: ATTEND Internal Medicine Gastroenterology
DX: Z12.11 Encounter for screening for malignant neoplasm of colon (principal); D12.5 Benign neoplasm of sigmoid colon; D12.8 Benign neoplasm of rectum; K29.60 Other gastritis without bleeding; K63.89 Other specified diseases of intestine; K57.30 Diverticulosis of large intestine without perforation or abscess without bleeding; K64.8 Other hemorrhoids; Z71.3 Dietary counseling and surveillance; I25.118 Atherosclerotic heart disease of native coronary artery with other forms of angina pectoris; I10 Essential (primary) hypertension; E66.3 Overweight; R06.00 Dyspnea, unspecified; Z01.812 Encounter for preprocedural laboratory examination; Z20.822 Contact with and (suspected) exposure to COVID-19; Z79.899 Other long term (current) drug therapy; Z68.28 Body mass index [BMI] 28.0-28.9, adult; Z86.16 Personal history of COVID-19
CPT/HCPCS: 36415; 43239; 45385; 85025; C9113; J2001; J2250; J2704; J3010; U0002; 45378